=== PATIENT | female | born 1990 | race African-American/Black ===

== ENCOUNTER 2016-11-10 05:42 | Emergency (ER) | payer SELFPAY ==
[~2016-11-10] VITALS: Ht 162.6 cm; Wt 54.6 kg
[2016-11-10 05:44] VITALS: BP 105/73
== END 2016-11-10 06:54 | disposition home or self-care (01) ==
LOC: ED 06:20
DX: K02.9 Dental caries, unspecified (principal)
CPT/HCPCS: 99283

== ENCOUNTER 2017-04-08 06:20 | Emergency (ER) | payer OTHER ==
[~2017-04-08] VITALS: Ht 162.6 cm; Wt 54.1 kg
[2017-04-08] MEDS ORDERED: ONDANSETRON ODT 4 MG ONE (06:56)
[2017-04-08] MEDS ORDERED: FAMOTIDINE 20 MG TABLET ONE (06:56)
[2017-04-08] MEDS ORDERED: ONDANSETRON ODT 4 MG PO ONE (07:00)
[2017-04-08] MEDS ORDERED: FAMOTIDINE 20 MG TABLET PO ONE (07:00)
[2017-04-08 07:09] LABS: HEMATOCRIT 43.6 % (34.6-47.8); HEMOGLOBIN 14.7 g/dL (11.7-16.4); WHITE BLOOD COUNT 6.4 x10^3/uL (3.4-10)
[2017-04-08 07:12] VITALS: BP 121/79
[2017-04-08 07:22] LABS: ASPARTATE AMINO TRANSFERASE 10 U/L (15-37); BLOOD UREA NITROGEN 12 mg/dL (7-18)
== END 2017-04-08 07:57 | disposition home or self-care (01) ==
LOC: ED 07:51
DX: K29.00 Acute gastritis without bleeding (principal); F41.1 Generalized anxiety disorder
CPT/HCPCS: 36415; 80053; 83690; 84703; 85025; 93005; 99285; Q0162